=== PATIENT | female | born 1985 | race Caucasian/White ===

== ENCOUNTER 2020-06-06 19:20 | Emergency (ER) | payer BC ==
[2020-06-06] MEDS ORDERED: Ketorolac 60 MG/2 ML SDV IM ONE (20:58)
--- NOTE | 2020-06-06 21:00 | EDM.PDOC ---
ED HPI GENERAL MEDICAL PROBLEM - General Chief Complaint: General Stated Complaint: LIGHT HEADED Time Seen by Provider: 06/06/20 20:34 Source of Information: Reports: Patient, RN Notes Reviewed History Limitations: Reports: No Limitations - History of Present Illness INITIAL COMMENTS - FREE TEXT/NARRATIVE: 34-year-old female presents emergency department today with multiple complaints she states she is having a headache, head feels fuzzy she is quite anxious she has having chest pain shortness of breath she has had tingling in her extremities and she is also worried about having Covid she denies any known exposures does have a history of anxiety has not taken any of her rescue medications also has a history of migraine headaches which are usually relieved by Tylenol, no significant family history for coronary artery disease Frontal Forehead Pain Score (Numeric/FACES): 4 - Related Data Allergies Allergy/AdvReac Type Severity Reaction Status Date / Time No Known Allergies Allergy Verified 06/06/20 20:09 Home Meds: Home Meds Acetaminophen [Tylenol Extra Strength] 1,000 mg PO ASDIRECTED 06/06/20 [History] Omeprazole 20 mg PO DAILY 06/06/20 [History] Past Medical History HEENT History: Reports: Other (See Below) Other HEENT History: scratchy 2nd to acid reflux [employer] History: Reports: Polycystic Ovaries Musculoskeletal History: Reports: Fracture Neurological History: Reports: Migraines Psychiatric History: Reports: Anxiety - Past Surgical History GI Surgical History: Reports: EGD Social & Family History - Tobacco Use Tobacco Use Status *Q: Never Tobacco User Second Hand Smoke Exposure: No - Caffeine Use Caffeine Use: Reports: Soda - Recreational Drug Use Recreational Drug Use: No ED ROS GENERAL - Review of Systems Review Of Systems: See Below Constitutional: Reports: No Symptoms HEENT: Reports: Throat Swelling, Vision Change, Other (Scratchy throat) Respiratory: Reports: Shortness of Breath Cardiovascular: Reports: Chest Pain, Dyspnea on Exertion, Palpitations GI/Abdominal: Reports: No Symptoms : Reports: No Symptoms Musculoskeletal: Reports: No Symptoms Skin: Reports: No Symptoms Neurological: Reports: Numbness (Extremities) ED EXAM, GENERAL - Physical Exam Exam: See Below Exam Limited By: No Limitations General Appearance: Alert, WD/WN, No Apparent Distress Eye Exam: Bilateral Eye: Normal Inspection Respiratory/Chest: No Respiratory Distress, Lungs Clear, Normal Breath Sounds, No Accessory Muscle Use, Chest Non-Tender Cardiovascular: Regular Rate, Rhythm, No Murmur GI/Abdominal: Soft, Non-Tender Course - Vital Signs Last Recorded V/S: Last Vital Signs Temp 95.9 F L 06/06/20 20:13 Pulse 82 06/06/20 20:13 Resp 12 06/06/20 20:13 BP 115/61 06/06/20 20:13 Pulse Ox 98 06/06/20 20:13 - Orders/Labs/Meds Orders: Active Orders 24 hr Category Date Time Status Cardiac Monitoring [RC] .As Directed Care 06/06/20 20:57 Active EKG Documentation Completion [RC] ASDIRECTED Care 06/06/20 20:58 Active CORONAVIRUS COVID-19, ELAINA Routine Lab 06/06/20 21:41 Received EKG 12 Lead [EK] Stat Ther 06/06/20 20:58 Ordered Labs: Laboratory Tests 06/06/20 06/06/20 Range/Units 21:09 21:09 WBC 13.2 H (4.5-11.0) K/uL RBC 4.88 (3.30-5.50) M/uL Hgb 13.1 (12.0-15.0) g/dL Hct 40.8 (36.0-48.0) % MCV 84 (80-98) fL MCH 27 (27-31) pg MCHC 32 (32-36) % Plt Count 342 (150-400) K/uL Neut % (Auto) 81 H (36-66) % Lymph % (Auto) 13 L (24-44) % Warrick % (Auto) 6 (2-6) % Eos % (Auto) 1 L (2-4) % Baso % (Auto) 0 (0-1) % Sodium 140 (140-148) mmol/L Potassium 4.0 (3.6-5.2) mmol/L Chloride 104 (100-108) mmol/L Carbon Dioxide 27 (21-32) mmol/L Anion Gap 9.3 (5.0-14.0) mmol/L BUN 9 (7-18) mg/dL Creatinine 0.9 (0.6-1.0) mg/dL Est Cr Clr Drug Dosing 83.23 mL/min Estimated GFR (MDRD) > 60 (>60) Glucose 98 (74-106) mg/dL Calcium 9.0 (8.5-10.1) mg/dL Troponin I < 0.017 (0.000-0.056) ng/mL Meds: Medications Discontinued Medications Generic Name Dose Route Start Last Admin Trade Name Loree PRN Reason Stop Dose Admin Ketorolac Tromethamine 60 mg 06/06/20 20:58 06/06/20 21:33 Toradol IM 06/06/20 20:59 60 mg ONETIME ONE Administration Departure - Departure Time of Disposition: 21:59 Disposition: Home, Self-Care 01 Condition: Good Clinical Impression: Panic attack - Discharge Information Instructions: Panic Attack, Dvne-[id number] Referrals: PCP,None [Primary Care Provider] - Forms: ED Department Discharge Additional Instructions: Try the Ativan as needed for symptomatic relief, please followup with your primary care provider in 3-5 days if not better, please call return to the emergency department with worsening of symptoms. Sepsis Event Note (ED) - Evaluation Sepsis Screening Result: No Definite Risk - Focused Exam Vital Signs: Vital Signs Temp Pulse Resp BP Pulse Ox 06/06/20 20:13 95.9 F L 82 12 115/61 98 - My Orders Last 24 Hours: My Active Orders 06/06/20 20:57 Cardiac Monitoring [RC] .As Directed 06/06/20 20:58 EKG Documentation Completion [RC] ASDIRECTED EKG 12 Lead [EK] Stat 06/06/20 21:41 CORONAVIRUS COVID-19, ELAINA Routine - Assessment/Plan Last 24 Hours: My Active Orders 06/06/20 20:57 Cardiac Monitoring [RC] .As Directed 06/06/20 20:58 EKG Documentation Completion [RC] ASDIRECTED EKG 12 Lead [EK] Stat 06/06/20 21:41 CORONAVIRUS COVID-19, ELAINA Routine Plan: Assessment Acuity = acute Site and laterality = panic attack Etiology = underlying anxiety Manifestations = none Location of injury = Home Lab values = WBC elevated 13.2 consistent leukocytosis probably related to acute phase troponin is negative BNP unremarkable EKG demonstrates sinus rhythm there is ST elevations or depressions, Covid test is pending Plan She is going to try Ativan 1 mg p.o. 3 times daily as needed at home she does have follow-up with her primary care next week, call return to the emergency department worsening of symptoms, also received a 60 mg Toradol IM for her headache while in the ED This note was dictated using [employer] voice recognition software please call with any questions on syntax or grammar.
== END 2020-06-06 22:26 | disposition home or self-care (01) ==
LOC: JP.ED 19:20
DX: F41.0 Panic disorder [episodic paroxysmal anxiety] (principal); K21.9 Gastro-esophageal reflux disease without esophagitis; Z79.899 Other long term (current) drug therapy; Z20.828 Contact with and (suspected) exposure to other viral communicable diseases
CPT/HCPCS: 36415; 80048; 84484; 85025; 87635; 93005; 93010; 96372; 99285; J1885; U0002